=== PATIENT | female | born 1955 | race Caucasian/White ===

== ENCOUNTER → 2016-04-24 | Outpatient (CLI) | payer OTHER | LOC: RAD 12:46 | DX: R06.2 Wheezing (principal) ==

== ENCOUNTER → 2017-05-04 | Outpatient (CLI) | payer OTHER | LOC: RAD 13:55 | DX: M25.561 Pain in right knee (principal); R60.9 Edema, unspecified ==

== ENCOUNTER → 2017-05-18 | Outpatient (CLI) | payer OTHER | LOC: RAD 14:21 → LAB 14:21 | DX: M79.642 Pain in left hand (principal); Y99.0 Civilian activity done for income or pay ==

== ENCOUNTER → 2017-11-28 | Outpatient (CLI) | payer OTHER | LOC: MAMMO 09:08 | DX: Z12.31 Encounter for screening mammogram for malignant neoplasm of breast (principal) ==

== ENCOUNTER → 2017-12-10 | Outpatient (CLI) | payer OTHER | LOC: PT 12:52 → EDSTATUS 13:52 | DX: Z01.818 Encounter for other preprocedural examination (principal) ==

== ENCOUNTER 2018-02-28 13:30 | Outpatient (RCR) | payer OTHER | END 2018-03-17 | disposition home or self-care (01) | LOC: PT | DX: S83.241D Other tear of medial meniscus, current injury, right knee, subsequent encounter (principal) ==

== ENCOUNTER → 2022-03-14 | Outpatient (CLI) | payer MEDICARE | LOC: MAMMO 13:37 | DX: M85.851 Other specified disorders of bone density and structure, right thigh (principal); Z78.0 Asymptomatic menopausal state ==